=== PATIENT | male | born 1960 | race Caucasian/White ===

== ENCOUNTER 2022-03-25 13:10 | Outpatient (CLI) | payer OTHER ==
[2022-03-25 14:07] VITALS: BP 127/84
--- NOTE | 2022-03-25 14:07 | SLEEP CARE CONSULTATION ---
Information from patient questionnaire entered by Sujata Key MA. I have reviewed and concur with the information entered by Sujata Key MA. This document represents the service I personally performed and the decisions made by me, Eun Guzman ARNP. History of Present Illness Service Date and Time: 03/25/2022 1310 Reason for Visit: New patient (ONSET 02/26/2022, ) Chief Complaint: reports: Insomnia, Unrefreshed sleep, Snoring Date of Onset: SURGERY Usual bedtime: 930 1000 PM Time it takes to fall asleep: 30 MINUTES Snores at night: Yes Observed to quit breathing while asleep: No Sleeps alone due to snoring: No Number of times waking at night: 3-4 Reasons for waking at night: reports: Snoring, Pain (in hip), Bathroom, Other (DREAMING). denies: Choking, Gasping for air Toss, Turn, or Twitch while sleeping: Yes Recalls having dreams: Yes Usually gets out of bed at: 0700 AM Feels refreshed in the morning: No Morning headache: No Sleepy or fatigued during the day: No Ever fallen asleep while driving: No Takes day naps: No Dreams during day naps: No Prior sleep studies: No Additional HPI information: I had the pleasure of seeing ALTAGRACIA DALEY today regarding the possibility of him having a sleep disorder. His current complaints are snoring and insomnia. He states on December 02 he twisted and causes a bulging disc and he needs surgery. They want him evaluated here before his gets this surgery. He states it takes him about 30 minutes to fall asleep initially and if he awakens during the night he can take a few minutes up to 1.5 hours to go back to sleep. This started mainly after he injured his back. 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 Patient is and lives in . Have you smoked in the past 12 months: No Alcohol use: Yes Alcohol amount and frequency: 5 X WEEKLY Caffeine use: No Family History Family history of sleep disordered breathing: No Allergies and Home Medications Known drug allergies: No Drug allergies reviewed: Yes (NKDA) Home medication list reviewed: Yes Allergy and home medication list: Medications: daily Gemfibrozil Atorvastatin Lisinopril Centrum for back, last 2 months Etodolac Gabapentin, nightly as needed Tylenol Review of Systems Cardiovascular: reports: high blood pressure Gastrointestinal: denies: heartburn Neurological: denies: headaches, head trauma Ear/Nose/Throat: reports: tonsillectomy, wisdom teeth removed Musculoskeletal: reports: joint pain, back pain, muscle pain or cramping Immunologic: reports: rash, allergies to food or environment Physical Exam Vital signs obtained and entered by: Sarabjit KEY CMA AAMA Blood Pressure: 127/84 (RIGHT, RESP 18, PULSE 109, ) Heart Rate: 100 O2 Saturation: 96 (CLOTH) Height: 5 ft 8 in Weight: 230 lb Body Mass Index: 34.9 BMI Classification: Obese Neck circumference: 17 (INCHES) Mouth and throat: narrow oropharynx Soft palate: long Hard palate: normal Uvula: normal Uvula visualization: 25% Mallampati Class III Tongue: enlarged in size with teeth higgins on lateral edges Tonsils: absent bilaterally Heart: regular rate and rhythm Lungs: clear bilaterally Impression and Plan 1. Suspected Obstructive Sleep Apnea-Hypopnea Syndrome, as suggested by a history of loud and irregular snoring and unrefreshed sleep. Narrow oropharynx and obesity are common predisposing factors for obstructive sleep apnea-hypopnea syndrome. I recommend proceeding to polysomnography to confirm the diagnosis and to assess severity. If the patient has significant sleep disordered breathing, a manual CPAP titration study will also be performed to find the optimal treatment pressure. I informed the patient of what the sleep studies involve and after some discussion, obtained agreement to proceed. The pathophysiology of obstructive sleep apnea-hypopnea syndrome was discussed with the patient and health risks of cardiovascular and cerebrovascular disease if not treated. Risks of drowsy driving discussed in detail and patient advised to avoid long distance driving and to plant puller at the first sign of drowsiness. Patient agreed to plan. * Schedule polysomnography * Avoid long distance driving or driving when feeling sleepy. * Avoid alcohol, sedative and muscle relaxant around bedtime. * Attempt to lose weight. * Review instructions provided by trained office staff on how to prepare for the sleep study. * Return for follow-up after sleep study completed. Counseling Topics: Weight loss health impact Visit Type: In Office Time Spent with Patient (minutes): 26 Provider Statement: I spent 100% of the Face to Face Visit with the patient with greater than 50% spent counseling the patient and coordination of care.
== END 2022-03-25 13:11 | disposition home or self-care (01) ==
LOC: SC 13:10
PROVIDERS: ATTEND Nurse Practitioner Family
DX: R06.83 Snoring (principal); G47.8 Other sleep disorders; I10 Essential (primary) hypertension; E66.9 Obesity, unspecified; Z68.34 Body mass index [BMI] 34.0-34.9, adult
CPT/HCPCS: 99202; 99212

== ENCOUNTER 2022-04-13 14:41 | Outpatient (CLI) | payer OTHER ==
--- NOTE | 2022-04-13 15:03 | SLEEP CARE CONSULTATION ---
Information from patient questionnaire entered by Sujata Campbell MA. I have reviewed and concur with the information entered by Sujata Campbell MA. This document represents the service I personally performed and the decisions made by me, Elle Mari MD, [facility]. History of Present Illness Service Date and Time: 04/13/2022 1441 Initial Ferriday Sleepiness Scale score: 4 (02/2022) Additional HPI information: Mr. Uribe returned for follow up of the home sleep apnea test (HSAT) he had on 04/01/22. The polysomnography showed No significant sleep disordered breathing, with an AHI of 3.2/hr and jose SaO2 of 84%. During the study, the patient had 7 apneas (7 obstructive, 0 central, 0 mixed) and 8 hypopneas. The longest episode lasted 75.5 seconds. The few respiratory events occurred only during supine sleep (supine AHI was 14.2 and non-supine, 0.00). Hypoxemia was mild, with the lowest oxygen saturation of 84 % and 1.9 minutes with SaO2 under 90%. Baseline oxygen saturation was normal (Average oxygen saturation was 94%). The patient was informed of these findings. I explained to him that overall he does not have significant sleep-disordered breathing but during supine sleep, he has mild obstructive sleep apnea-hypopnea. Sleep Study - Results Type of Sleep Study: Home sleep study (F/U HOME STUDY, 04-01-2022 [facility], [place],) Prior sleep studies: No Allergies and Home Medications Drug allergies reviewed: Yes Home medication list reviewed: Yes Review of Systems Review of systems same as previous: Yes Physical Exam Vital signs obtained and entered by: HUBERT ALVES Height: 5 ft 8 in Impression and Plan IMPRESSION: 1. Suspected sleep apnea, not present during his recent home sleep apnea test (HSAT). Had the patient on his back the whole night, the test might have been positive for the sleep-disordered breathing. An in-laboratory polysomnography would be more accurate. However, because he is asymptomatic, I do not feel strongly that we need to go further. PLAN: 1. Avoid sleeping supine. 2. Inform his anesthesiologists and surgeons that he has obstructive sleep apnea-hypopnea if put in supine position. 3. Avoid alcohol near bedtime. 4. Avoid weight gain. 5. Return for a follow up on as needed basis. Counseling Topics: Sleeping position Follow up with Sleep Care in: as needed Visit Type: Telehealth Phone Patient Location: Home Location of Provider: Office Patient agrees and consents to this telehealth visit type: Yes Patient agrees to have their insurance billed: Yes Time Spent with Patient (minutes): 15 Provider Statement: I spent 100% of the Telehealth Phone Call with the patient with greater than 50% spent counseling the patient and coordination of care.
== END 2022-04-13 14:42 | disposition home or self-care (01) ==
LOC: SC 14:41
PROVIDERS: ATTEND Internal Medicine Pulmonary Disease
DX: R06.83 Snoring (principal); G47.8 Other sleep disorders; I10 Essential (primary) hypertension